=== PATIENT | male | born 1990 | race Caucasian/White ===

== ENCOUNTER 2017-11-29 14:24 | Emergency (ER) | payer OTHER ==
[2017-11-29 14:35] VITALS: BP 126/71; PULSE 72; RESP 17; TEMP 97.9; O2SAT 95
--- NOTE | 2017-11-29 15:17 | EDPHY ---
H & P Time Seen by Provider: 11/29/17 14:59 HPI/ROS: CHIEF COMPLAINT: Back pain HISTORY OF PRESENT ILLNESS: Patient is a 27-year-old male who presents emergency department after injuring his back. He is at work and picked up 200 lb of pickles. When he sat down on the ground, he felt pain is mid left lateral spine extending down to his lower back. It is worse with movement. His pain is moderate to severe. He has no numbness or tingling. No previous back injuries. No fall or other trauma. REVIEW OF SYSTEMS: My complete review of systems is negative except as mentioned in the HPI. Past Medical/Surgical History: Negative Past surgical history: Negative Social history: Patient denies drugs Smoking Status: Current every day smoker Physical Exam: 36.6, 126/71, 72, 17, 95% on room air GENERAL: Well-appearing, in no acute distress, alert. HEENT: Eyes normal to inspection, normal pharynx, no signs of dehydration. NECK: [No thyromegaly, no lymphadenopathy, supple. RESPIRATORY: Clear to auscultation bilaterally, no rales, rhonchi or wheezing. CVS: Regular rate and rhythm, no rubs, murmurs, or gallops. ABDOMEN: Soft, nontender, nondistended, no organomegaly. BACK: Normal to inspection, no CVA tenderness. Patient has no spinal tenderness palpation. No step-off or deformity. Patient has mild discomfort in the left lateral thoracic spine extending down to his lumbar region. This is all on the left side. It appears to be focused over his muscle. SKIN: Normal color, no rash, warm, dry. No pallor. EXTREMITIES: No pedal edema, no calf tenderness, no Homans sign or cords, no joint swelling. NEURO/PSYCH: Alert and oriented, normal mood and affect, normal motor sensory exam. No obvious cranial nerve deficit. Constitutional: Initial Vital Signs Temperature (C) 36.6 C 11/29/17 14:32 Heart Rate 72 11/29/17 14:32 Respiratory Rate 17 11/29/17 14:32 Blood Pressure 126/71 H 11/29/17 14:32 O2 Sat (%) 95 11/29/17 14:32 O2 Delivery Mode Room Air Allergies/Adverse Reactions: No Known Allergies Allergy (Unverified 11/29/17 14:31) Home Medications: Medication Instructions Recorded Cyclobenzaprine [Flexeril] 10 mg PO TID #15 tab 11/29/17 Hydrocodone/APAP 5/325 [[place] 1 - 2 tab PO Q4 #13 tab 11/29/17 5/325 (RX)] Ibuprofen 11/29/17 Medical Decision Making ED Course/Re-evaluation: In the emergency department I discussed possible etiologies with the patient. I answered all his questions. I discussed appropriate back care. Patient will be given Flexeril and Vicodin. He is given warnings prior to leaving. He will return with worsening symptoms. Differential Diagnosis: My differential includes but is not limited to muscle strain, disc herniation, fracture, dislocation Departure - Departure Disposition: Home, Routine, Self-Care Clinical Impression: Back pain Qualifiers: Back pain location: thoracic back pain Chronicity: acute Back pain laterality: left Qualified Code(s): M54.6 - Pain in thoracic spine Condition: Good Instructions: Back Pain (ED) Additional Instructions: Return with increasing pain, weakness, numbness or any other concerns Referrals: Luisito Medina MD [Medical Doctor] - 5-7 days, if not improved Prescriptions: Cyclobenzaprine [Flexeril] 10 mg PO TID #15 tab Hydrocodone/APAP 5/325 [[place] 5/325 (RX)] 1 - 2 tab PO Q4 #13 tab
== END 2017-11-29 15:34 | disposition home or self-care (01) ==
DX: S29.9XXA Unspecified injury of thorax, initial encounter (principal); F17.200 Nicotine dependence, unspecified, uncomplicated; X50.0XXA Overexertion from strenuous movement or load, initial encounter; Y92.69 Other specified industrial and construction area as the place of occurrence of the external cause; Y99.0 Civilian activity done for income or pay; Y93.89 Activity, other specified

== ENCOUNTER 2018-05-12 19:59 | Emergency (ER) | payer OTHER ==
[2018-05-12] MEDS ORDERED: EPINEPHrine 1 MG/ML INJ IM ONE (20:07)
[2018-05-12] MEDS ORDERED: RANITIDINE 50 MG/2 ML VIAL IVP ONE (20:07)
[2018-05-12] MEDS ORDERED: NS 1,000 ML IV ONE (20:07)
[2018-05-12] MEDS ORDERED: methylPREDNISolone SOD SUCC 125 MG/2 ML VIAL IVP ONE (20:07)
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
[2018-05-12 21:48] VITALS: BP 120/82
== END 2018-05-12 22:36 | disposition home or self-care (01) ==
DX: T63.441A Toxic effect of venom of bees, accidental (unintentional), initial encounter (principal); E86.9 Volume depletion, unspecified; F17.200 Nicotine dependence, unspecified, uncomplicated
CPT/HCPCS: 96374; J0171; J1200; J2780; J2930